=== PATIENT | female | born 1980 | race Caucasian/White ===

== ENCOUNTER 2018-09-10 16:42 | Outpatient (REF) | payer MEDICAID, SELFPAY ==
[2018-09-10 21:54] LABS: HDL Cholesterol 98 mg/dL (40-60); LDL CHOLESTEROL 38 mg/dL (<100)
[2018-09-10 21:59] LABS: Cholesterol 163 mg/dL (50-200); Triglyceride 68 mg/dL (30-150)
[2018-09-12 10:15] LABS: HIV-1/2 Ag & Ab Screen Negative (NEGAT)
[2018-09-12 13:27] LABS: Chlamydia Result Negative; GC Result Negative; Specimen Description URINE
== END 2018-09-10 17:02 ==
LOC: NCHCN 16:42
PROVIDERS: Visit Provider Registered Nurse
DX: K21.9 Gastro-esophageal reflux disease without esophagitis (principal); N93.9 Abnormal uterine and vaginal bleeding, unspecified; Z11.3 Encounter for screening for infections with a predominantly sexual mode of transmission; Z11.4 Encounter for screening for human immunodeficiency virus [HIV]; Z00.00 Encounter for general adult medical examination without abnormal findings
CPT/HCPCS: 80061; 83721; 87389; 87491; 87591

== ENCOUNTER 2018-10-15 12:50 | Outpatient (REF) | payer MEDICAID, SELFPAY ==
--- NOTE | 2018-10-16 12:00 | PAPFT_PTH ---
PATIENT: Monserrat Shanks LOC: [facility] U#:[id number] AGE/SX: 38/F ROOM: RE10/15/[address]: Shirley Mcdowell : 1980 BED: DIS: 10/15/2018 SPEC #: [id number] RECD: 10/16/18 12:54 STATUS: JOAO REQ #: [id number] MAHNAZ: 10/16/18 12:[address]: Shirley Mcdowell DEPT: [facility] Cytology RECD BY: Antonia Ramesh Tissues: 1 - CX/ENDOCX FOR PAP SMEARS Procedures: PAP THIN PREP/[facility] Screening HPV DNA PROBE Comments: [id number]
== END 2018-10-15 13:10 ==
LOC: NCHCN 12:50
PROVIDERS: PCP Registered Nurse; Visit Provider Registered Nurse
DX: Z12.4 Encounter for screening for malignant neoplasm of cervix (principal); Z00.00 Encounter for general adult medical examination without abnormal findings
CPT/HCPCS: 88142; 87624

== ENCOUNTER 2021-12-23 16:43 | Outpatient (REF) | payer MEDICAID, SELFPAY ==
[2021-12-23 21:40] LABS: Lipase 122 U/L (73-393)
[2021-12-26 12:35] LABS: IgA 203 mg/dL (85-499); Interpretation (See Note); Tissue Transglutaminase IgA <1.2 U/mL (<4.0)
== END 2021-12-23 16:44 | disposition home or self-care (01) ==
LOC: NCHCN 16:43
PROVIDERS: PCP Registered Nurse; Visit Provider Internal Medicine
DX: R10.9 Unspecified abdominal pain (principal)
CPT/HCPCS: 82784; 83516; 83690

== ENCOUNTER 2021-12-26 13:34 | Outpatient (REF) | payer MEDICAID, SELFPAY ==
[2021-12-28 14:52] LABS: Helicobacter pylori Ag, Feces Negative (Negative)
== END 2021-12-26 13:35 | disposition home or self-care (01) ==
LOC: NCHCN 13:34
PROVIDERS: PCP Registered Nurse; Visit Provider Internal Medicine
DX: R10.9 Unspecified abdominal pain (principal)
CPT/HCPCS: 87338

== ENCOUNTER 2024-03-06 18:16 | Outpatient (REF) | payer MEDICAID, SELFPAY ==
--- NOTE | 2024-03-06 15:30 | PAPFT_PTH ---
PATIENT: Monserrat Shanks LOC: [facility]#:[id number] AGE/SX: 43/F ROOM: RE03/06/[address]: TOMAS: 1980 BED: DIS: 03/06/2024 SPEC #: [id number] RECD: 03/07/24 13:01 STATUS: JOAO ALVARES #: [id number] MAHNAZ: 03/06/24 15:[address]: Akila Hubbard DEPT: [facility] Cytology RECD BY: Antonia Ramesh ENTERED: 03/07/24 13:01 SP TYPE: PAPFT OTHR DR: Shirley Mcdowell Tissues: 1 - CX/ENDOCX FOR PAP SMEARS Procedures: PAP THIN PREP/[facility] Screening HPV DNA PROBE Comments: [id number] (HPV 16 & 18/45)
[2024-03-06 21:43] LABS: TSH 1.21 uIU/Ml (0.36-3.74)
== END 2024-03-06 18:17 | disposition home or self-care (01) ==
LOC: NCHCN 18:16
PROVIDERS: PCP Registered Nurse; Visit Provider Family Medicine
DX: R63.5 Abnormal weight gain (principal); Z12.4 Encounter for screening for malignant neoplasm of cervix; Z11.51 Encounter for screening for human papillomavirus (HPV)
CPT/HCPCS: 88142; 84443; 87624

== ENCOUNTER 2024-09-02 10:40 | Outpatient (REF) | payer MEDICAID, SELFPAY ==
[2024-09-02 15:19] LABS: Abs Immature Grans 0.01 10^3/uL (0.0-0.06); Absolute Basophil Count 0.05 10^3/uL (0.0-0.2); Absolute Eosinophil Count 0.16 10^3/uL (0.0-0.7); Absolute Lymphocyte Count 1.67 10^3/uL (1.2-3.4); Absolute Monocyte Count 0.46 10^3/uL (0.1-0.8); Absolute Neutrophil Count 2.21 10^3/uL (1.2-6.7); Basophils % 1.1 %; Eosinophils % 3.5 %; HCT 37.9 % (36.0-46.0); HGB 13.6 g/dL (11.2-15.7); Immature Grans % 0.2 %; Lymphocytes % 36.6 %; MCHC 35.9 % (32.0-36.0); MCV 97 fL (80-95); MPV 10.1 fL (8.0-11.0); Monocytes % 10.1 %; Neutrophils % 48.5 %; Platelet Count 314 10^3/uL (130-400); RBC 3.89 10^6/uL (3.93-5.22); RDW 12.9 % (11.7-14.6); RDW-SD 46.1 fL; WBC 4.56 10^3/uL (4.4-10.8)
[2024-09-02 15:55] LABS: BUN 7 mg/dL (7-18); CREATININE 1.1 mg/dL (0.55-1.02); Calcium 9.1 mg/dL (8.5-10.1); Chloride 105 mmol/L (98-107); Estimated GFR 62.76 (mL/min/1.73m2); Glucose 104 mg/dL (74-106); Potassium 4.4 mmol/L (3.5-5.1); Sodium 139 mmol/L (136-145)
== END 2024-09-02 10:41 | disposition home or self-care (01) ==
LOC: NCHCN 10:40
PROVIDERS: PCP Registered Nurse; Visit Provider Family Medicine
DX: R10.9 Unspecified abdominal pain (principal)
CPT/HCPCS: 80048; 85025